=== PATIENT | female | born 1985 | race Caucasian/White ===

== ENCOUNTER 2016-12-31 08:02 | Emergency (ER) | payer MEDICAID ==
[~2016-12-31] VITALS: Ht 157.5 cm; Wt 68.0 kg
[~2016-12-31 08:02] MED LIST: PREN-29 PO
[2016-12-31 08:03] VITALS: Ht 157.5 cm; Wt 68.0 kg
--- NOTE | 2016-12-31 08:31 | ERD ---
ER Documentation Chief Complaint Date/Time DATE: 12/31/16 TIME: 08:30 Chief Complaint vomiting and diarrhea for past 2 days HPI Patient is a 31-year-old female who presents with 4 days of gradual onset, intermittent, nonbloody, nonbilious vomiting associated with diarrhea. Patient reports that she started having vomiting 4 days ago. This progressed to diarrhea that is yellow. She took some Pepto-Bismol and had slightly dark stool. She denies any blood or mucus in the stool. She reports having subjective fever 2 days ago, for 1 day only. She reports mild to moderate, variable, cramping, migratory abdominal pain. No back pain, no dysuria. Patient denies any recent travel, eating undercooked foods. The patient has a son who had similar symptoms prior to the onset of her symptoms, and has another son who developed similar symptoms after she did. ROS All systems reviewed and are negative except as per history of present illness. Medications Home Meds Active Scripts Loperamide Hcl* (Imodium*) 2 Mg Capsule, 2 MG PO BID Y for DIARRHEA, #8 TAB Prov:ROSANNE MENDIOLA MD 12/31/16 Famotidine* (Pepcid*) 20 Mg Tablet, 20 MG PO BID for 7 Days, TAB Prov:ROSANNE MENDIOLA MD 12/31/16 Ondansetron Hcl* (Zofran*) 4 Mg Tablet, 4 MG PO Q8H Y for NAUSEA AND/OR VOMITING , #15 TAB Prov:ROSANNE MENDIOLA MD 12/31/16 Reported Medications Vit-Fe Fumarate-FA* (Eric Tablet*) 1 Tab Tablet, 1 TAB PO DAILY, TAB 07/16/14 Allergies Allergies: Coded Allergies: No Known Allergies (Unverified Allergy, Unknown, 03/23/14) PMhx/Soc Past medical history: None Past surgical history: None Social history: Denies tobacco, alcohol or illicit drugs. Last menstrual period: Patient states she had a menstrual period 2 weeks ago, and currently has vaginal spotting as well. Medical and Surgical Hx: pt denies Medical Hx History of Surgery: Yes (csect x2) Hx Alcohol Use: No Hx Substance Use: No Hx Tobacco Use: No FmHx Family History: No coronary disease, No diabetes Physical Exam Vitals Vital Signs Date Time Temp Pulse Resp B/P Pulse Ox O2 Delivery O2 Flow Rate FiO2 12/31/16 08:03 97.9 94 18 137/91 98 Physical Exam Const: Alert, no acute distress Head: Atraumatic Eyes: Normal Conjunctiva, no pallor, no icterus ENT: Normal External Ears, Nose and Mouth. Moist mucous membranes Neck: Full range of motion..~ No meningismus. Resp: Clear to auscultation bilaterally, no wheezes, no rales Cardio: Regular rate and rhythm, no murmurs Abd: Soft, non tender, no guarding, no rebound, non distended. Normal bowel sounds Skin: No petechiae or rashes Back: No midline or flank tenderness Ext: No cyanosis, or edema Neur: Awake and alert, cranial nerves II through XII intact bilaterally, strength and sensation full in 4 extremities Psych: Normal Mood and Affect Procedures/MDM MDM: Patient is a 31-year-old female who presents with vomiting diarrhea over the last 4 days. She has sick contacts at home, and symptoms suggestive of viral gastroenteritis. She does complain of cramping abdominal pain, but has no focal pain or tenderness on exam. Patient states that she had yellow stool that became dark after taking Pepto-Bismol. I am not concerned for GI bleed, and suspect that dark stool was due to taking Pepto-Bismol. She reports that she was able to tolerate breakfast this morning without vomiting. She has normal vital signs, no signs of dehydration on exam. I will discharge her home with Zofran, Pepcid for gastric irritation, and loperamide for ongoing diarrhea. Departure Diagnosis: Primary Impression: Gastroenteritis Condition: Stable ROSANNE MENDIOLA MD December 31, 2016 08:31
[2016-12-31] MEDS ORDERED: ONDA4TAB8 PO (08:32)
[2016-12-31] MEDS ORDERED: FAMO-18 PO (08:32)
[2016-12-31] MEDS ORDERED: LOPE2CAP PO (08:32)
== END 2016-12-31 08:43 | disposition home or self-care (01) ==
LOC: FTE 08:02
DX: K52.9 Noninfective gastroenteritis and colitis, unspecified (principal)
CPT/HCPCS: 99283